=== PATIENT | female | born 1995 | race Caucasian/White ===

== ENCOUNTER 2021-02-15 20:49 | Emergency (ER) | payer MEDICAID ==
[~2021-02-15] VITALS: Ht 154.9 cm; Wt 46.7 kg
[2021-02-15 20:56] VITALS: BP 126/74
--- NOTE | 2021-02-15 21:00 | NUR ---
PATIENT AMBUALTED TO RESTROOM WITH TEADY GAIT TO PROVIDE UA SAMPLE.
--- NOTE | 2021-02-15 21:14 | NUR ---
25 YO/F BIB SELF W C/O BILATERAL FLANK ACHEING PAIN 4/10 X 1.5 WEEKS, THAT RAIDATES TO HER ABDOMEN X 1.5 WEEKS ACCOMPANIED BY NAUSEA. BOWEL SOUNDS PRESENT. PATIENT REPORTS SHE HAS HAD BURNING AND FREQUENT URINATION THAT COMES AND GOES FOR A COUPLE OF MONTHS AND HAS BEEN ON ABX, WITH LAST ABX DOSE FOR TODAY, AND HAS NOT HAD ANY RELIEF OF SYMPTOMS. PATIENT REPORTS SHE HAS HAD ONGOING ON AND OFF FEVERS VARYING FROM 98.6 TO 100.8 DEGREED FARENHEIT X1.5 WEEKS. PATIENTS URINE IS DARK YELLOW. DENIES ANY BLEEDING. PATIENT A0X4. PATIENT IS SITTING IN BED LOCKED IN LOWEST POSITION, X1 SIDE RAIL UP, NO ACUTE DISTRESS NOTED. PMH:DENIES (REPORTS POSSIBLE RA) WILMERA
[2021-02-15] MEDS: ONDANSETRON 4 MG ODT PO ONE (22:11)
[2021-02-15] MEDS ORDERED: CIPR500T4 PO (22:22)
[2021-02-15] MEDS ORDERED: ONDA8TAB87 PO (22:22)
[2021-02-15] MEDS ORDERED: IBUP-2213 PO (22:22)
[2021-02-15 22:38] VITALS: BP 126/74
--- NOTE | 2021-02-15 22:38 | NUR ---
Patient discharged with v/s stable. Written and verbal after care instructions given and explained. Patient alert, oriented and verbalized understanding of instructions. Ambulatory with steady gait. All questions addressed prior to discharge. ID band removed. Patient advised to follow up with PMD. Rx of CIPRO, IBUPROFEN, ZOFRAN given. Patient educated on indication of medication including possible reaction and side effects. Opportunity to ask questions provided and answered.
== END 2021-02-15 22:38 | disposition home or self-care (01) ==
LOC: MED 20:49
DX: N39.0 Urinary tract infection, site not specified (principal); F17.210 Nicotine dependence, cigarettes, uncomplicated; F12.10 Cannabis abuse, uncomplicated
CPT/HCPCS: 81002; 81025; 99283; Q0162

== ENCOUNTER 2021-08-12 14:57 | Emergency (ER) | payer MEDICAID ==
[~2021-08-12] VITALS: Ht 154.9 cm; Wt 44.5 kg
[~2021-08-12 14:57] MED LIST: CIPR500T4 PO; IBUP-2213 PO; ONDA8TAB87 PO
[2021-08-12 15:24] VITALS: BP 121/83
--- NOTE | 2021-08-12 15:55 | NUR ---
PT REFUSING BLOOD WORK AND REQUESTING MEDICATIONS FOR ANXIETY AT THIS TIME.
--- NOTE | 2021-08-12 17:24 | NUR ---
AMRIK STOVER ATTEMPTED TO CALL PT BACK, NO ANSWER IN LOBBY
--- NOTE | 2021-08-12 17:51 | NUR ---
PT TAKEN TO CHAIR Nohemi STOVER EVALUATING PT AT THIS TIME
[2021-08-12] MEDS ORDERED: DIAZ2TAB6 PO (18:01)
--- NOTE | 2021-08-12 18:07 | NUR ---
PT SEEN AND D/C BY AMRIK STOVER, NO NURSING INTERVENTIONS PROVIDED
[2021-08-12 18:08] VITALS: BP 122/83
--- NOTE | 2021-08-12 18:08 | NUR ---
Patient discharged with v/s stable. Written and verbal after care instructions ABOUT VERTIGO AND GENERALIZED ANXIETY DISORDER given and explained. Patient alert, oriented and verbalized understanding of instructions. Ambulatory with steady gait. All questions addressed prior to discharge. ID band removed. Patient advised to follow up with PMD. Rx of VALIUM given. Patient educated on indication of medication including possible reaction and side effects. Opportunity to ask questions provided and answered.
== END 2021-08-12 18:08 | disposition home or self-care (01) ==
LOC: MED 14:57
DX: F41.9 Anxiety disorder, unspecified (principal); R42 Dizziness and giddiness; Z79.899 Other long term (current) drug therapy
CPT/HCPCS: 81002; 81025; 99283